=== PATIENT | male | born 1945 | race Caucasian/White ===

== ENCOUNTER 2019-05-10 08:30 | Emergency (ER) | payer MEDICARE, OTHER ==
--- NOTE | 2019-05-10 09:08 | ED Physician Documentation ---
PD HPI SKIN - Stated complaint Stated Complaint: RASH - Chief complaint Chief Complaint: Allergic Rx - History obtained from History obtained from: Patient - History of Present Illness Timing - onset: Yesterday Timing - details: Abrupt onset (about 30 minutes after eating good amount of peanuts.) Location: Bodywide Quality / character: Itchy Improved by: No: Benadryl Associated symptoms: Dyspnea (some feeling of dyspnea and scratchy throat today). No: Fever, N/V/D Contributing factors: Exposed to food (he ate good amount of peanuts yesterday and started with hives soon after. Usually does eat peanuts but was a bit more than usual amount. No other change in foods, meds, external use products.) Similar symptoms before: Has not had sx before Recently seen: Not recently seen Review of Systems Constitutional: denies: Fever, Chills Nose: denies: Rhinorrhea / runny nose, Congestion Throat: reports: Sore throat (scratchy this morning) Respiratory: denies: Cough GI: denies: Nausea, Vomiting, Diarrhea Skin: reports: Rash PD PAST MEDICAL HISTORY - Past Medical History Past Medical History: Yes Cardiovascular: Hypertension Respiratory: None Neuro: None Endocrine/Autoimmune: None - Past Surgical History HEENT: Tonsil/Adenoidectomy - Present Medications Home Medications: Ambulatory Orders Medication Instructions Recorded Confirmed Cetirizine [ZyrTEC] 10 mg PO DAILY #15 tablet 05/10/19 dexAMETHasone [Decadron] 4 mg PO DAILY #5 tablet 05/10/19 - Allergies Allergies/Adverse Reactions: Allergies Allergy/AdvReac Type Severity Reaction Status Date / Time No Known Drug Allergies Allergy Verified 05/10/19 08:41 - Social History Does the pt smoke?: No Smoking Status: Never smoker Does the pt drink ETOH?: Yes Does the pt have substance abuse?: No - Immunizations Immunizations are current?: No - POLST Patient has POLST: No PD ED PE NORMAL - Vitals Vital signs reviewed: Yes - General General: Alert and oriented X 3, No acute distress, Well developed/nourished - HEENT HEENT: No: Pharynx benign (minimal swelling of uvula and has mildly hoarse voice. ) - Neck Neck: Supple, no meningeal sign, No adenopathy - Cardiac Cardiac: RRR, No murmur - Respiratory Respiratory: Clear bilaterally - Abdomen Abdomen: Soft, Non tender - Back Back: No CVA TTP - Derm Derm: Normal color, Warm and dry, Other (blotchy nonvesicular rash, slightly raised red c/w hives. ) - Extremities Extremities: No edema - Neuro Neuro: Alert and oriented X 3, No motor deficit, Normal speech Results - Vitals Vitals: Vital Signs - 24 hr 05/10/19 05/10/19 05/10/19 08:37 09:01 10:09 Temperature 36.3 C L 37.2 C 37.3 C Heart Rate 80 62 68 Respiratory 14 18 18 Rate Blood Pressure 132/93 H 140/95 H 142/92 H O2 Saturation 97 98 98 Oxygen O2 Source Room air PD MEDICAL DECISION MAKING - ED course Complexity details: re-evaluated patient, considered differential (timing is associated with eating peanuts so may be now allergic to them. Also takes lisinopril and has element of angioedema, so would be cautious about that underlying process with the peanuts only being added irritant but not main trigger. ), d/w patient Departure - Departure Disposition: 01 Home, Self Care Clinical Impression: Allergic reaction Qualifiers: Encounter type: initial encounter Qualified Code(s): T78.40XA - Allergy, unspec ified, initial encounter Condition: Stable Record reviewed to determine appropriate education?: Yes Instructions: ED Allergic Reaction General Other Follow-Up: MYRON WALKER MD [Primary Care Provider] - Prescriptions: Cetirizine [ZyrTEC] 10 mg PO DAILY #15 tablet dexAMETHasone [Decadron] 4 mg PO DAILY #5 tablet Comments: I would avoid peanuts and I would also hold your lisinopril. The timing of eating the peanuts with the onset of the symptoms suggests the peanuts as a trigger. However lisinopril is associated with allergic reactions like this and may have been a sap gatherer as well. Use the antihistamines cetirizine and add Benadryl every 6 hours if needed for continued itching or hives. Decadron steroid daily for 5 more days. Recheck if not improving well over the next couple of days. Contact your primary care for an appointment in a couple of weeks if he is able to do any allergy testing to see if you are truly allergic to the peanuts. If your blood pressure is of concern, he can prescribe different class of antihype rtensive instead of the DESHAWN inhibitor (lisinopril). Discharge Date/Time: 05/10/19 10:16
[2019-05-10] MEDS ORDERED: CHERRY SYRUP 10 ML UDC PO ONE (09:49)
[2019-05-10] MEDS ORDERED: CETIRIZINE 10 MG TABLET PO STA (09:49)
[2019-05-10] MEDS ORDERED: DEXAMETHASONE 10 MG/ML VIAL PO STA (09:49)
[2019-05-10] MEDS ORDERED: FAMOTIDINE 20 MG TABLET PO STA (09:49)
[2019-05-10] MEDS ORDERED: diphenhydrAMINE 25 MG CAPSULE PO STA (09:49)
[2019-05-10 10:16] VITALS: BP 142/92
== END 2019-05-10 10:16 | disposition home or self-care (01) ==
LOC: ED 08:30
DX: T78.40XA Allergy, unspecified, initial encounter (principal); L50.9 Urticaria, unspecified; I10 Essential (primary) hypertension
CPT/HCPCS: 99283; 99284; A9270

== ENCOUNTER 2022-03-01 11:46 | Emergency (ER) | payer MEDICARE, OTHER ==
--- NOTE | 2022-03-01 12:14 | XRAY Report ---
PROCEDURE: Elbow 3 View LT INDICATIONS: Trauma TECHNIQUE: 3 views of the elbow were acquired. COMPARISON: None FINDINGS: Bones: No fractures or dislocations. No suspicious bony lesions. There is moderate tricompartmenta l periarticular osteophyte formation. Soft tissues: There is then elbow joint effusion. No suspicious soft tissue calcifications. IMPRESSION: 1. Osteoarthritis. 2. No displaced fracture is present. However, an elbow joint effusion is present which may be indicat e an occult underlying nondisplaced fracture. Conservative management is recommended, with repeat, or advanced imaging, if clinically warranted. Reviewed by: Mary Beltran MD on 03/01/2022 12:13 PM PDT Approved by: Mary Beltran MD on 03/01/2022 12:13 PM PDT Station ID: [id number]
--- NOTE | 2022-03-01 13:41 | ED Physician Documentation ---
History of Present Illness - Stated complaint Stated Complaint: LEFT ELBOW PX - Chief complaint Chief Complaint: Trauma Ext - Additonal information Additional information: 76-year-old male presents emergency department for evaluation of 3 weeks left elbow pain and swelling. He was in a hotel shower when he slipped. He struck his elbow hard. Over the last 3 weeks he has continued to have posterior elbow swelling. He did have a superficial abrasion that sometimes opens up and drains is serous fluid. No fevers. No history of similar. He is right arm dominant. Review of Systems Constitutional: reports: Reviewed and negative Nose: reports: Reviewed and negative Throat: reports: Reviewed and negative Respiratory: reports: Reviewed and negative GI: reports: Reviewed and negative : reports: Reviewed and negative Skin: reports: Abrasion (s) Musculoskeletal: reports: Joint pain, Joint swelling PD PAST MEDICAL HISTORY - Past Medical History Cardiovascular: Hypertension Respiratory: None Neuro: None Endocrine/Autoimmune: None - Past Surgical History HEENT: Tonsil/Adenoidectomy - Present Medications Home Medications: Ambulatory Orders Medication Instructions Recorded Confirmed Cetirizine [ZyrTEC] 10 mg PO DAILY #15 tablet 05/10/19 dexAMETHasone [Decadron] 4 mg PO DAILY #5 tablet 05/10/19 - Allergies Allergies/Adverse Reactions: Allergies Allergy/AdvReac Type Severity Reaction Status Date / Time No Known Drug Allergies Allergy Verified 03/01/22 11:53 - Social History Does the pt smoke?: No Smoking Status: Never smoker Does the pt drink ETOH?: Yes Does the pt have substance abuse?: No - Immunizations Immunizations are current?: No - POLST Patient has POLST: No PD ED PE EXPANDED - Extremities Extremities: Left elbow (Palpable swelling with fluctuance in the left posterior elbow consistent with olecranon bursitis. Normal flexion extension of the elbow. Normal pronation and supination. No tenderness elicited medial process) Results - Vitals Vitals: Vital Signs - 24 hr 03/01/22 11:50 Temperature 36.6 C Heart Rate 62 Respiratory 16 Rate Blood Pressure 141/76 H O2 Saturation 98 Oxygen O2 Source Room air - Rads (name of study) left elbow Radiology: Final report received (No acute fracture) Procedures - Abscess I&D (location) left lebow Preparation: Alcohol Incision: Needle aspiration Other: Pt tolerated well, Dressing applied PD MEDICAL DECISION MAKING - ED course Complexity details: reviewed results, re-evaluated patient, considered differential, d/w patient ED course: 76-year-old male presents emergency department for evaluation of 3 weeks left p osterior elbow swelling after striking it hard while in the shower 3 weeks ago. X-rays without acute osseous abnormality. Exam is consistent with an olecranon bursitis. Here in the emergency department I did sterilely aspirated about 5 mL of serous fluid. Given lack of findings suggest infection will defer antibiotics. A gentle Bob wrap was placed over the elbow. Routine care and emergent return precautions were discussed for worsening symptoms. Departure - Departure Disposition: Home, Self Care Clinical Impression: Olecranon bursitis, left elbow Condition: Stable Record reviewed to determine appropriate education?: Yes Instructions: ED Bursitis Elbow Olecranon Comments: Faisal you came to the emergency department because you had some fluid develop behind your left elbow after striking it in the shower about 3 weeks ago. The x-ray does not show any findings to suggest a broken bone. The swelling is consistent with a condition called olecranon bursitis. The bursa sac helps protect the elbow joint and aids in movement. Sometimes it can get inflamed especially after trauma such as when you struck the elbow. We did aspirate about 5 mL of serous fluid. I expect that by simply placing a gentle compress such as the Bob wrap of the elbow over the next few weeks while out of bed will help reduce the swelling. If at any point you have worsening symptoms, develop fevers any concerns of infection or worsening pain then please return immediately to the ER for second evaluation.
[2022-03-01 13:54] VITALS: BP 135/75
== END 2022-03-01 14:00 | disposition home or self-care (01) ==
LOC: ED 11:46
DX: M70.22 Olecranon bursitis, left elbow (principal); Y93.E1 Activity, personal bathing and showering
CPT/HCPCS: 20605